=== PATIENT | female | born 1965 | race Caucasian/White ===

== ENCOUNTER 2023-11-18 09:07 | Outpatient (CLI) | payer BC, SELFPAY | END 2023-11-18 09:08 | disposition home or self-care (01) | LOC: NFLDREF 11-22 15:25 | PROVIDERS: Visit Provider Physician Assistant | DX: N39.0 Urinary tract infection, site not specified (principal) | CPT/HCPCS: 87086 ==

== ENCOUNTER 2024-05-28 12:40 | Outpatient (CLI) | payer BC, SELFPAY | END 2024-05-28 12:41 | disposition home or self-care (01) | LOC: NFLDREF 20:25 | PROVIDERS: PCP Physician Assistant; Visit Provider Physician Assistant | DX: R30.0 Dysuria (principal) | CPT/HCPCS: 87086 ==